=== PATIENT | female | born 1960 | race Caucasian/White ===

== ENCOUNTER 2018-08-25 09:33 | Emergency (ER) | payer MEDICAID ==
[~2018-08-25] VITALS: Ht 170.2 cm; Wt 128.4 kg
[2018-08-25 09:49] VITALS: Ht 170.2 cm; Wt 128.4 kg
[2018-08-25 12:21] VITALS: BP 120/74
== END 2018-08-25 12:33 | disposition home or self-care (01) ==
LOC: ED 09:33
DX: G43.909 Migraine, unspecified, not intractable, without status migrainosus (principal); R19.7 Diarrhea, unspecified
CPT/HCPCS: J0780; J1100; J1885; Q0162